=== PATIENT | male | born 1955 | race Caucasian/White ===

== ENCOUNTER → 2016-05-14 | Outpatient (CLI) | payer BC ==
--- NOTE | 2016-05-15 14:14 | NM ---
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 Thyroid iodine uptake is calculated after the oral adminis tration of 16 uCi I-131 capsule. FINDINGS: There is normal distribution of activity throughout the gland. The 4 hour iodine uptake is calculated at 1.1% (normal range 8-14%). The 24-hour iodine uptake is calculated at 4.2% (normal ran ge 15-35%). IMPRESSION: Abnormal thyroid uptake as described. Thyroid trapping is essentially normal although the gland may be decreased in size, consider thyroiditis
== END | disposition home or self-care (01) ==
LOC: RADNMMAIN 11:00
PROVIDERS: ATTEND Internal Medicine Endocrinology, Diabetes & Metabolism
DX: R94.8 Abnormal results of function studies of other organs and systems (principal)
CPT/HCPCS: 78014; A9528; A9512

== ENCOUNTER → 2016-07-27 | Outpatient (CLI) | payer BC ==
--- NOTE | 2016-07-28 08:43 | XR ---
EXAM TYPE: LUMBAR SPINE X RAY SERIES COMPARISON: NONE HISTORY: Chronic low back pain TECHNIQUE: 4 views are submitted. FINDINGS: Alignment is anatomic. The pedicles are intact. The transverse processes are intact. There is curv ature of the spine. Punctate calcifications overlying the right kidney suspicious for renal stone. Di ffuse osteopenia noted. Sclerosis involving the left SI joint suggesting sacroiliitis. Severe degener ative disc disease L5-S1 with moderate changes at levels L3-L5 and T12-L2. Severe facet arthropathy L 4-5 and L5-S1. Possible aortic aneurysm not entirely included on the lumbar spine sequence. IMPRESSION: 1. Moderate to severe multilevel degenerative disc disease with facet arthropathy. Most marked findin gs at levels L4-S1. Consider MRI follow-up. 2. Questionable abdominal aortic aneurysm correlate with ultrasound or CT scan. 3. Left sacroiliitis.
== END ==
LOC: RADXRYALE 14:19
PROVIDERS: ATTEND Physician Assistant Medical
DX: M51.16 Intervertebral disc disorders with radiculopathy, lumbar region (principal); M46.86 Other specified inflammatory spondylopathies, lumbar region
CPT/HCPCS: 72110

== ENCOUNTER → 2016-08-20 | Outpatient (CLI) | payer MEDICARE, BC ==
--- NOTE | 2016-08-20 14:15 | US ---
EXAMINATION TYPE: US abdomen complete DATE OF EXAM: 08/20/2016 11:13 AM COMPARISON: Correlation lumbar radiographs 07/27/2016. CLINICAL HISTORY: 61-year-old male I71.4 AAA w/o rupture. TECHNIQUE: Multiple sonographic images of the abdomen are obtained. FINDINGS: Liver Length: 18.2 cm Gallbladder Wall: 0.2 cm CBD: 0.2 cm Spleen: 11 cm Right Kidney: 11.4 x 5.5 x 5.9 cm Left Kidney: 11.2 x 6.2 x 4.5 cm Incidental note of an umbilical hernia measuring 2.1 x 2.4 x 4.0 cm. Valsalva maneuver does not accen tuate the size of the aneurysm. Pancreas: Obscured by bowel gas Liver: Limited detailed assessment due to large patient body habitus. Liver is mildly enlarged with s light heterogeneous appearance. Gallbladder: No abnormal gallbladder distention, wall thickening, pericholecystic fluid, or shadowin g calculi. Evidence for sonographic Argueta's sign: no CBD: Within normal limits Spleen: wnl Right Kidney: Limited visualization due to large body habitus. No evident hydronephrosis. Left Kidney: Limited visualization due to large body habitus. No evident hydronephrosis. At the uppe r pole, there is a round hypoechoic lesion with posterior through transmission measuring 2.9 x 2.1 x 1.9 cm, most likely a cyst Upper IVC: Not well seen Abd Aorta: Abdominal Aorta: Proximal:1.4 cm Mid: 1.8 cm Distal: 2.6 cm Bifurcation: Right iliac 1.1 cm LEFT iliac 0.8 cm IMPRESSION: 1. Limited exam due to large patient body habitus. 2. Mild hepatomegaly. Coarsened echotexture of the liver could be technical or could reflect nonspeci fic hepatocellular disease. Clinically correlate. 3. Probable 2.9 cm cyst upper pole left kidney. Internal echoes could represent debris or could be ar tifactual. This can be reassessed in 6 months with a renal ultrasound. 4. Incidental 4 cm umbilical hernia. 5. Ectasia of the distal abdominal aorta at 2.6 cm. However, note that visualization is limited due t o large patient body habitus. Given possible aneurysm on lumbar radiographs, consider CT to further e valuate.
== END | disposition home or self-care (01) ==
LOC: RADUSWWP 10:32
PROVIDERS: ATTEND Family Medicine
DX: I77.811 Abdominal aortic ectasia (principal); R16.0 Hepatomegaly, not elsewhere classified
CPT/HCPCS: 76700

== ENCOUNTER → 2016-09-22 | Outpatient (CLI) | payer MEDICARE, BC ==
--- NOTE | 2016-09-23 07:55 | CT ---
EXAMINATION TYPE: CT angio thoracic/abd aorta DATE OF EXAM: 09/22/2016 COMPARISON: CT chest November 13, 2013. Complete abdominal ultrasound August 20, 2016. Lumbar spine x-ray July 27, 2016. HISTORY: Abnormal US and xray CT DLP: 2353.6 mGycm. Automated Exposure Control for Dose Reduction was Utilized. CONTRAST: CTA scan of the thorax, abdomen and upper pelvis is performed without and with IV Contrast, patient i njected with 100 mL of Omnipaque 350. Three-D reconstructed images are created on independent worksta tion and reviewed. FINDINGS: VASCULAR: Pulmonary arterial system is felt within normal limits. Pulsation artifact in the ascending aorta is noted. Ascending aorta measures up to 3.7 cm in diameter on axial image 30. There is mild t o minimal plaque in the aortic arch. There is normal three-vessel origin from the aorta without signi ficant plaque or stenosis. Mild noncalcified plaque is seen in proximal descending thoracic aorta. Th ere is mild calcified plaque in the abdominal aorta. There is ectasia identified distally. Aorta estefanía ures up to 2.9 cm transversely on axial image 83 and 2.7 cm AP diameter on axial image 88. No greater than 3 cm aneurysmal change is seen. There is patent celiac axis, SMA and bilateral single renal art eries and DARCIE. Mild calcified plaque without significant stenosis is seen in SMA and bilateral single renal arteries. There is patent common iliac arteries with mild to moderate calcified plaque extendi ng into proximal internal and external iliac arteries. No significant stenosis is present in branchin g vessels. LUNGS: There is trace right basilar effusion and adjacent linear atelectasis. Prominent subpleural bl eb and bulla formation in both upper lobes is redemonstrated. Some linear scarring right midlung near axial image 40 is redemonstrated. No new parenchymal nodule or mass is seen. No left-sided effusion is identified. No pneumothorax is seen bilaterally. MEDIASTINUM: There are no greater than 1 cm hilar or mediastinal lymph nodes. No pericardial effusi on is seen. Small size thyroid gland is present OTHER: Bilateral gynecomastia is more prominent or progressed from prior CT. LIVER/GB: No significant abnormality is appreciated. PANCREAS: No significant abnormality is seen. SPLEEN: No significant abnormality is seen. ADRENALS: No significant abnormality is seen. KIDNEYS: There is 2.5 cm simple appearing cyst upper pole level left kidney anteriorly on axial image 66. BOWEL: Moderate to large size hiatal hernia is redemonstrated felt stable. Some diverticula are seen in the left and visualized sigmoid colon. LYMPH NODES: No greater than 1cm abdominal lymph nodes are appreciated. OSSEOUS STRUCTURES: There is disc space narrowing lumbosacral junction with sclerosis and spurring ri ght aspect. Facet arthropathy lower lumbar levels is seen. Some spinal canal effacement is present lo wer lumbar levels, no significant stenosis is present. Some asymmetric sclerosis inferior left sacroi liac joint is confirmed. OTHER: There is moderate to large sized fat-containing umbilical hernia axial image 93. IMPRESSION: 1. Ectatic abdominal aorta without greater than 3 cm aneurysmal change. Stable ectasia to ascending a joshua. 2. Moderate to large sized fat-containing umbilical hernia. 3. A 2.6 cm fairly simple appearing cyst upper pole level anteriorly left kidney is confirmed.
== END | disposition home or self-care (01) ==
LOC: RADCTMAIN 15:42
PROVIDERS: ATTEND Family Medicine
DX: I77.811 Abdominal aortic ectasia (principal); K42.9 Umbilical hernia without obstruction or gangrene; N28.1 Cyst of kidney, acquired; I77.810 Thoracic aortic ectasia
CPT/HCPCS: 75635; 71275; Q9967

== ENCOUNTER → 2018-07-12 | Outpatient (CLI) | payer MEDICARE, BC ==
--- NOTE | 2018-07-12 15:45 | CT ---
EXAMINATION TYPE: CT angio abdomen DATE OF EXAM: 07/12/2018 COMPARISON: 09/22/2016 HISTORY: 63-year-old male follow-up AAA CT DLP: 1910.20 mGycm, Automated Exposure Control for Dose Reduction was Utilized. CONTRAST: CT scan of the abdomen and pelvis is performed with oral and without and with IV Contrast, patient in jected with 100 mL of Isovue 370. Coronal and sagittal reconstructions performed. 3-D reconstructions generated on a dedicated independent workstation. FINDINGS: Heart upper limits of normal in size without pericardial effusion. Ectatic aortic root at 3.7 cm. There is a large hiatal hernia with two thirds of the stomach in the lower chest. Strandy atelectasis at the lung bases. No pleural effusion. Arterial phase imaging of the liver, adrenal glands, kidneys, and pancreas show no gross abnormality. Gallbladder borderline to mildly hydropic at 4.1 cm wide, probably due to fasting state. Some calcifications involving a nonenlarged portacaval lymph node probably due to prior granulomatous disease, unchanged. No mesenteric or retroperitoneal lymphadenopathy seen. Moderate-sized fatty umbilical hernia measuring 4.5 cm wide versus 4.1 cm in 2017. Hypodense lesions in both kidneys appear to have been present previously though slightly larger from prior exam. There is a 3.1 cm cyst anterior upper pole left kidney versus 2.6 cm, previously. No dilated small bowel, free fluid, or free air. Mild to moderate stool burden. There is diverticulosis of the left hemicolon with focal pericolonic f at stranding at the junction of the descending and sigmoid colon, axial image 74. The pelvis is not imaged. VASCULATURE: Celiac axis is patent. Minimal atherosclerotic calcifications at the origin of the SMA. Mild metastatic calcifications at the origin of the cochran right renal artery and mild to moderate at the origin of the cochran left renal artery. DARCIE appears patent. Fusiform infrarenal abdominal aortic aneurysm measuring up to 3.2 cm versus 3.1 cm, previously the an eurysm extends to the bifurcation spanning approximately 6.5 cm. [id number] atherosclerotic changes of the iliac arteries with ectatic right common iliac artery at 1.6 cm versus 1.5 cm, previously. BONES: Degenerative changes lower lumbar spine. Chronic fracture deformity right posterior 11th rib is parti ally united. IMPRESSION: 1. Left hemicolonic diverticulosis with mild acute diverticulitis at the junction of the descending a nd sigmoid colon. 2. Mild fusiform AAA measuring 3.2 cm versus 3.1 cm on 09/22/2016. Borderline ectasia right common que ac artery at 1.6 cm. 3. Large hiatal hernia with two thirds of the stomach located in the lower chest. 4. Moderate-sized fat-containing umbilical hernia measuring 4.5 cm wide versus 4.1 cm in 2017. A [place] level critical message alert has been initiated for Verna Ceja MD via the [employer] Critical Results System on 07/12/2018 3:35 PM. This message alert has been sent to Verna parada MD via the preferences provided by the clinician for the receipt of Radiology Critical Fin dings. Message ID [id number].
== END ==
LOC: RADCTMAIN 14:16
PROVIDERS: ATTEND Internal Medicine Cardiovascular Disease
DX: I71.4 Abdominal aortic aneurysm, without rupture (principal); K57.30 Diverticulosis of large intestine without perforation or abscess without bleeding; K57.32 Diverticulitis of large intestine without perforation or abscess without bleeding; K44.9 Diaphragmatic hernia without obstruction or gangrene; K42.9 Umbilical hernia without obstruction or gangrene
CPT/HCPCS: 74175; Q9967

== ENCOUNTER → 2021-05-28 | Outpatient (CLI) | payer MEDICARE ==
--- NOTE | 2021-05-28 16:28 | XR ---
EXAMINATION TYPE: XR chest 2V DATE OF EXAM: 05/28/2021 COMPARISON: Chest x-ray 08/02/2013, CT 09/22/2016 HISTORY: Cough TECHNIQUE: Frontal and lateral views of the chest are obtained. FINDINGS: There are prominent lung volumes present consistent with underlying COPD. Biapical pleural thickening is present. Retrocardiac density with central lucency is compatible with hiatal hernia an d partial intrathoracic stomach. No evident pneumothorax or pleural effusion. Heart is within normal limits for size. Aorta is dense and tortuous. IMPRESSION: Patient with known emphysema. Hiatal hernia.
== END | disposition home or self-care (01) ==
LOC: RADXRYALE 14:02
PROVIDERS: ATTEND Physician Assistant Medical
DX: J43.9 Emphysema, unspecified (principal); K44.9 Diaphragmatic hernia without obstruction or gangrene
CPT/HCPCS: 71046